=== PATIENT | male | born 1960 | race Caucasian/White ===

== ENCOUNTER → 2018-09-11 | Outpatient (CLI) | payer MEDICAID ==
--- NOTE | 2018-09-11 11:54 | Diagnostic Imaging Report ---
PROCEDURE: CT chest without contrast. TECHNIQUE: Multiple contiguous axial images were obtained through the chest without the use of intravenous contrast. Auto Exposure Controls were utilized during the CT exam to meet ALARA standards for radiation dose reduction. INDICATION: Abnormal chest x-ray 1 to 2 months ago. Patient also has right-sided chest pain. No prior studies are available for direct comparison. No axillary lymphadenopathy is seen. Hilar and mediastinal evaluation is limited without intravenous contrast but no significant abnormality is detected. No pericardial or pleural fluid is identified. Parenchymal evaluation does show severe emphysematous changes throughout both lungs. There is a spiculated density in the right upper lobe, image 39 measuring 13 mm. There is an additional spiculated density in the posterior left lower lobe measuring 17 mm. No other lung masses are seen. Upper abdomen does show bilateral adrenal masses, largest on the left measuring 5.8 x 2.9 cm. Right adrenal mass measures 2.8 x 2.0 cm. Both adrenal masses are fairly low in density. There is a tiny nonobstructing calculus in the right kidney. IMPRESSION: 1. Spiculated densities right upper lobe and left lower lobe, concerning for small malignancies. PET/CT study would be recommended for further evaluation. 2. Bilateral adrenal masses, indeterminate between adrenal adenomas versus metastatic lesions. These can be evaluated with PET/CT as well. Dictated by: Dictated on workstation # [id number]
== END ==
LOC: RAD FS 10:46
PROVIDERS: ATTEND Nurse Practitioner Family
DX: J98.4 Other disorders of lung (principal); E27.8 Other specified disorders of adrenal gland; R07.89 Other chest pain
CPT/HCPCS: 71250

== ENCOUNTER → 2018-09-22 | Outpatient (CLI) | payer MEDICAID ==
--- NOTE | 2018-09-22 15:59 | Diagnostic Imaging Report ---
EXAMINATION: PET/CT. INDICATION: Pulmonary nodules. EXAMINATION: After intravenous administration of 12.71 mCi of F18-FDG, a series of overlapping emission and transmission PET images was obtained. In the coronal, transaxial and sagittal planes, the area imaged extended from the skull base through the upper thighs. FINDINGS: There are no previous PET/CT examinations available for comparison. The recent CT chest exam performed on 09/11/2018 noted a spiculated density in the right upper lobe measuring 13 mm. That finding is again evident on this study and does not appear to have changed significantly. The maximum SUV in this area, however, is only 1.6. Consequently this may be secondary to scar formation as opposed to malignancy. Even so, I would recommend that a short-term (three-month) followup CT chest exam be performed for further study. There is also slightly increased hypermetabolic activity in the left perihilar region. The maximum SUV in this area is 3.5. However, there is no definite mass, and this finding may be secondary to volume averaging with the vascular structures. There is no other hypermetabolic focus within the thorax to suggest a malignant lesion. The previous exam did note bilateral adrenal masses. Those findings are again evident and unchanged on the CT images. The adrenal glands are not hypermetabolic, however. There is no other hypermetabolic focus seen to suggest the presence of malignancy. The CT images fail to show any sign of an acute abnormality. IMPRESSION: 1. The spiculated density in the right upper lung seen on the previous exam is again evident. This finding is not hypermetabolic. Even so, a short-term (three-month) follow-up CT chest exam would be recommended for continued evaluation. 2. There is no hypermetabolic activity associated with the adrenal glands, and most likely, the appearance of the adrenal glands is secondary to adrenal adenomas. 3. No other hypermetabolic activity is noted to indicate the presence of malignancy. Dictated by: Dictated on workstation # [id number]
== END ==
LOC: RAD 11:16
PROVIDERS: ATTEND Nurse Practitioner Family
DX: J98.4 Other disorders of lung (principal); R91.8 Other nonspecific abnormal finding of lung field; E27.8 Other specified disorders of adrenal gland

== ENCOUNTER 2019-02-01 15:02 | Emergency (ER) | payer MEDICAID ==
[~2019-02-01] VITALS: Ht 175.3 cm; Wt 74.8 kg
[2019-02-01] MEDS ORDERED: LIDOCAINE 1% INJ 20 ML 20 ML VIAL INJ ONE (15:30)
--- NOTE | 2019-02-01 15:49 | NUR ---
Pressure dressing applied after doctor used 5-0 running sutures to close laceration. Per doctor's order wrist splint applied for laceration with tendon damage.
--- NOTE | 2019-02-01 15:51 | ED Upper Extremity ---
General Chief Complaint: Laceration Stated Complaint: RT WRIST LAC Nursing Triage Note: Patient was sent over by [facility] in [place]. Pt at 1350 cut his wrist on tin while putting down shingles for a roof. Patient went to [facility] and they applied a wet to dry pressure dressing and gave the patient his Tdap shot. Pt was driven to this ER to be seen, because [facility] could not put subcutaneous sutures in. Pt was alert and oriented at arrival. Pt was ambulatory to room 5 where he layed down on the bed. Pt's vitals were taken and pressure dressing was removed. Pt's laceration was about 3 cm and bleeding. Gauze 4x4 was applied and wrapped in coban. Pt stated he can move all fingers and move hand around. Pain is about a 2/3, but patient does not want anything for pain, because he is on suboxone for past opioid use. Pt reports hydrocodone down for allergies, but no reaction except past opioid use. Nursing Sepsis Screen: No Definite Risk Source: patient Exam Limitations: no limitations History of Present Illness Date Seen by Provider: Feb 01, 2019 Time Seen by Provider: 15:36 Initial Comments This 59-year-old male presents with a laceration to the right wrist. Patient cut the dominant right wrist on a sharp piece of flashing while he was kayla. The patient was seen in the clinic prior to arrival and given a tetanus shot. He was referred here for definitive repair. The patient denies loss sensation range of motion of his affected extremity. He denies other injury. Allergies and Home Medications Allergies Coded Allergies: hydrocodone (Verified Allergy, Unknown, previous opioid user; on suboxone, 02/01/19) Patient Home Medication List Home Medication List Reviewed: Yes Review of Systems Constitutional: no symptoms reported EENTM: no symptoms reported Respiratory: no symptoms reported Cardiovascular: no symptoms reported Gastrointestinal: no symptoms reported Genitourinary: no symptoms reported Musculoskeletal: see HPI Skin: see HPI Psychiatric/Neurological: No Symptoms Reported Past Wobrplh-Dacstm-Syfcwe Hx Past Med/Social Hx: Reviewed Nursing Past Med/Soc Hx Patient Social History Alcohol Use: Denies Use Recreational Drug Use: No (Previous opioid user; on suboxone) Smoking Status: Current Everyday Smoker Type Used: Cigarettes 2nd Hand Smoke Exposure: Yes Recent Foreign Travel: No Contact w/Someone Who Travel: No Recent Infectious Disease Expo: No Recent Hopitalizations: No Physical Abuse: No Sexual Abuse: No Mistreated: No Fear: No Immunizations Up To Date Tetanus Booster (TDap): Less than 5yrs Seasonal Allergies Seasonal Allergies: No Past Medical History Surgeries: No Respiratory: Yes COPD Cardiac: No Neurological: No Genitourinary: No Gastrointestinal: No Musculoskeletal: No Endocrine: No HEENT: No Cancer: No Psychosocial: No Integumentary: No Blood Disorders: No Physical Exam Vital Signs Vital Signs - First Documented 02/01/19 15:05 Temp 99.0 Pulse 85 Resp 18 B/P (MAP) 124/81 (95) Pulse Ox 93 O2 Delivery Room Air Capillary Refill : NONE Height, Weight, BMI Height: 5'9.00" Weight: 165lbs. 0oz. [id number]; BMI Method:Stated General Appearance: WD/WN, mild distress Neck: normal inspection Cardiovascular: regular rate, rhythm Respiratory: lungs clear, normal breath sounds Gastrointestinal: normal bowel sounds, non tender, soft Back: normal inspection Shoulder: normal inspection Elbow/Forearm: normal inspection Wrist: Yes pain (there is a 6 cm laceration radial aspect of the right wrist) Hand: normal inspection Neurologic/Tendon: normal sensation, normal motor functions, normal tendon functions, responds to pain Neurologic/Psychiatric: no motor/sensory deficits, alert, oriented x 3 Progress/Results/Core Measures Results/Orders My Orders Orders - MARSHA DE LA CRUZ MD Lidocaine 1% Inj 20 Ml (Xylocaine 1% Inj (02/01/19 15:30) Medications Given in ED Current Medications Medications Dose Ordered Sig/Saadia Route Start Time Stop Time Status Last Admin Dose Admin Lidocaine HCl 10 ml ONCE ONCE INJ 02/01/19 15:30 02/01/19 15:31 DC 02/01/19 15:39 10 ML Vital Signs/I&O 02/01/19 15:05 Temp 99.0 Pulse 85 Resp 18 B/P (MAP) 124/81 (95) Pulse Ox 93 O2 Delivery Room Air Blood Pressure Mean: 95 Progress Progress Note : Time: 16:00 Progress Note The laceration to the radial aspect of the right wrist was copiously cleaned and irrigated. 1 percent plain lidocaine was used for local anesthesia. Exploration to the depth of the laceration demonstrated apparent transection of the flexor carpi radialis. The patient's external examination had appeared to be normal but clearly there is at least 2 tendons which have been disrupted. I called Dr. Francis of [facility] and he declined the patient. I placed a call to Dr. Tovar and am awaiting his call back. 4:17 pm I called , hand surgeon with [facility] and am awaiting his call as well. 1 gm of Rocephin IM was given. [address] Quick called back and will see the patient in his [facility] in the morning at 9 am. The patient was instructed to stay NPO in the morning. I placed him on Keflex 500 mg qid. No pain meds other than tylenol was recommended as the patient is recovering from narcotics. Departure Impression Primary Impression: Tendon laceration Disposition: HOME, SELF-CARE Condition: Improved Departure-Patient Inst. Decision time for Depature: 16:34 [place]: [facility] [place] Primary Care Physician MARSHA ONTIVEROS DO Patient Instructions: Tendon Laceration Add. Discharge Instructions: See Dr. Ontiveros at his [facility] at 10 am in the morning. Keflex as prescribed. Tylenol for pain. Splint right wrist. Come back if any problems or questions. All discharge instructions reviewed with patient and/or family. Voiced understanding. Scripts Cephalexin (Keflex) 500 Mg Capsule 500 MG PO QID for 10 Days, CAP Prov: MARSHA DE LA CRUZ MD 02/01/19 MARSHA DE LA CRUZ MD Feb 01, 2019 15:51
[2019-02-01] MEDS ORDERED: cefTRIAXone 500 MG/1.43 ML vial (IM ONLY) IM ONE (16:15)
[2019-02-01] MEDS ORDERED: CEPH-507 PO (16:37)
[2019-02-01 16:45] VITALS: BP 142/82
== END 2019-02-01 16:40 | disposition home or self-care (01) ==
LOC: EDUNIT# 15:02 → ER FS 15:03
DX: S66.921A Laceration of unspecified muscle, fascia and tendon at wrist and hand level, right hand, initial encounter (principal); J44.9 Chronic obstructive pulmonary disease, unspecified; F17.210 Nicotine dependence, cigarettes, uncomplicated; Z88.5 Allergy status to narcotic agent; W26.8XXA Contact with other sharp object(s), not elsewhere classified, initial encounter

== ENCOUNTER → 2019-04-07 | Outpatient (CLI) | payer MEDICAID ==
[~2019-04-07] MED LIST: CEPH-507 PO
--- NOTE | 2019-04-07 13:06 | Diagnostic Imaging Report ---
EXAMINATION: CT Chest without contrast. TECHNIQUE: Multiple contiguous axial images were obtained through the chest without the use of intravenous contrast. All CT scans use one or more of the following dose optimizing techniques: automated exposure control, MA and/or KvP adjustment based on a patient size and exam type, or iterative reconstruction. HISTORY: Lung nodules. COMPARISON: 09/11/2018. FINDINGS: The lungs are clear without edema or pneumonia. No pleural effusion or pneumothorax. The previously seen right upper lobe nodule has resolved. The left lower lobe nodule has nearly resolved and is now only 1 to 2 mm in size. There is some mild atelectasis in the right lung base. Lungs are severely emphysematous. No new nodules are seen. Heart size is normal. No pericardial effusion. Aorta is normal in caliber. There is no axillary or supraclavicular lymphadenopathy. There is no mediastinal lymphadenopathy. Bilateral adrenal nodules measuring 2.8 cm on the right and 5.8 cm on the left are unchanged with internal low attenuation in keeping with adenomas or lipid-poor myelolipomas. There are no suspicious osseous lesions. IMPRESSION: 1. The right upper lobe nodule is resolved and the left lower lobe nodule has nearly completely resolved. 2. Stable bilateral either adrenal adenomas or lipid-poor myelolipomas. Dictated by: Dictated on workstation # [id number]
== END ==
LOC: RAD FS 10:01
PROVIDERS: ATTEND Nurse Practitioner
DX: R91.8 Other nonspecific abnormal finding of lung field (principal)
CPT/HCPCS: 71250

== ENCOUNTER 2020-01-22 17:00 | Emergency (ER) | payer MEDICAID ==
[~2020-01-22] VITALS: Ht 175.3 cm; Wt 81.6 kg
--- NOTE | 2020-01-22 17:01 | ED General ---
General Stated Complaint: SOB History of Present Illness Date Seen by Provider: Jan 22, 2020 Time Seen by Provider: 17:01 Initial Comments Mr. Soto is a 60 y/o male with PMH significant for tobacco abuse and COPD. He comes to the ER today c/o dyspnea. Symptoms started earlier today. He has been using albuterol treatments at home today without relief of dyspnea symptoms. He does endorse some increasing cough that is productive of sputum. Mildly worse compared to baseline. He has otherwise been at baseline health until onset of sx earlier today. No chest pain. No fever. No viral symptoms or recent travel. He had previously been treated with oxygen at home but states he no longer has this available. Allergies and Home Medications Allergies Coded Allergies: hydrocodone (Verified Allergy, Unknown, previous opioid user; on suboxone, 02/01/19) Home Medications Albuterol Sulfate 2.5 Mg/3 Ml Vial.neb, 2.5 MG INH Q4H PRN for WHEEZING Prescribed by: MICHAEL HERNANDEZ on 01/22/201907 Azithromycin 250 Mg Tablet, 250 MG PO DAILY Prescribed by: MICHAEL HERNANDEZ on 01/22/201907 Cephalexin 500 Mg Capsule, 500 MG PO QID Prescribed by: MARSHA DE LA CRUZ MD on 02/01/191636 Prednisone 50 Mg Tab, 50 MG PO DAILY Prescribed by: MICHAEL HERNANDEZ on 01/22/201910 Patient Home Medication List Home Medication List Reviewed: Yes Review of Systems Review of Systems Constitutional: no symptoms reported EENTM: no symptoms reported Respiratory: see HPI, cough Cardiovascular: no symptoms reported Musculoskeletal: no symptoms reported Skin: no symptoms reported All Other Systems Reviewed Negative Unless Noted: Yes Physical Exam Vital Signs Vital Signs - First Documented 01/22/20 01/22/20 17:18 17:29 Temp 36.0 Pulse 101 Resp 28 B/P (MAP) 127/81 (96) Pulse Ox 97 O2 Delivery Nasal Cannula O2 Flow Rate 2.00 Capillary Refill : Height, Weight, BMI Height: '" Weight: lbs. oz. kg; BMI Method: General Appearance: No Apparent Distress, WD/WN HEENT: PERRL/EOMI Respiratory: Other (wheezes bilaterally with prolonged expiratory phase and some diminished air flow. mild increased work of breathing.) Cardiovascular: No Murmur, Tachycardia Gastrointestinal: Non Tender, Soft Extremity: Normal Capillary Refill Progress/Results/Core Measures Suspected Sepsis SIRS Temperature: Pulse: Respiratory Rate: Laboratory Tests 01/22/20 17:16: White Blood Count 11.0 Blood Pressure / Mean: Laboratory Tests 01/22/20 17:16: Creatinine 0.94, Platelet Count 438H Results/Orders Lab Results Laboratory Tests Test 01/22/20 17:16 Range/Units White Blood Count 11.0 4.3-11.0 10^3/uL Red Blood Count 5.19 4.35-5.85 10^6/uL Hemoglobin 14.6 13.3-17.7 G/DL Hematocrit 46 40-54 % Mean Corpuscular Volume 89 80-99 FL Mean Corpuscular Hemoglobin 28 25-34 PG Mean Corpuscular Hemoglobin Concent 32 32-36 G/DL Red Cell Distribution Width 14.3 10.0-14.5 % Platelet Count 438 H 130-400 10^3/uL Mean Platelet Volume 10.4 7.4-10.4 FL Neutrophils (%) (Auto) 75 42-75 % Lymphocytes (%) (Auto) 14 12-44 % Monocytes (%) (Auto) 8 0-12 % Eosinophils (%) (Auto) 3 0-10 % Basophils (%) (Auto) 0 0-10 % Neutrophils # (Auto) 8.2 H 1.8-7.8 X 10^3 Lymphocytes # (Auto) 1.5 1.0-4.0 X 10^3 Monocytes # (Auto) 0.9 0.0-1.0 X 10^3 Eosinophils # (Auto) 0.3 0.0-0.3 10^3/uL Basophils # (Auto) 0.0 0.0-0.1 10^3/uL Sodium Level 140 135-145 MMOL/L Potassium Level 5.5 H 3.6-5.0 MMOL/L Chloride Level 101 98-107 MMOL/L Carbon Dioxide Level 30 21-32 MMOL/L Anion Gap 9 5-14 MMOL/L Blood Urea Nitrogen 18 7-18 MG/DL Creatinine 0.94 0.60-1.30 MG/DL Estimat Glomerular Filtration Rate > 60 BUN/Creatinine Ratio 19 Glucose Level 120 H 70-105 MG/DL Calcium Level 9.7 8.5-10.1 MG/DL Troponin I < 0.30 <0.30 NG/ML Pro-B-Type Natriuretic Peptide 48.4 <75.0 PG/ML My Orders Orders - MICHAEL HERNANDEZ DO Ed Iv/Invasive Line Start (01/22/20 17:10) Cbc With Automated Diff (01/22/20 17:10) Basic Metabolic Panel (01/22/20 17:10) Probnp Fs (01/22/20 17:10) Troponin I Fs (01/22/20 17:10) Ekg Tracing (01/22/20 17:10) Methylprednisolone Sod Succ (Solu-Medrol (01/22/20 17:15) Albuterol/Ipra Inhalation Soln (Duoneb I (01/22/20 17:15) Svn Small Volume Nebulizer (01/22/20 17:11) Chest 1 View Ap/Pa Only (01/22/20 17:26) Albuterol Pre-Mix Nebs (Rt) (Proventil (01/22/20 17:30) Svn Small Volume Nebulizer (01/22/20 17:30) Ns Iv 1000 Ml (Sodium Chloride 0.9%) (01/22/20 18:15) Albuterol Pre-Mix Nebs (Rt) (Proventil (01/22/20 19:00) Svn Small Volume Nebulizer (01/22/20 18:46) Rx-Albuterol Nebs (Rx-Proventil Nebs) (01/22/20 18:43) Azithromycin Tablet (Zithromax Tablet) (01/22/20 19:15) Medications Given in ED Current Medications Medications Dose Ordered Sig/Saadia Route Start Time Stop Time Status Last Admin Dose Admin Albuterol Sulfate 2.5 mg STK-MED ONCE IH 01/22/20 18:43 01/22/20 18:47 DC 01/22/20 18:54 2.5 MG Albuterol Sulfate 10 mg ONCE ONCE INH 01/22/20 17:30 01/22/20 17:36 DC 01/22/20 17:49 10 MG Albuterol Sulfate 10 mg ONCE ONCE INH 01/22/20 19:00 01/22/20 19:01 DC 01/22/20 18:51 10 MG Albuterol/ Ipratropium 3 ml ONCE ONCE INH 01/22/20 17:15 01/22/20 17:18 DC 01/22/20 17:24 3 ML Methylprednisolone Sodium Succinate 125 mg ONCE ONCE IVP 01/22/20 17:15 01/22/20 17:16 DC 01/22/20 17:24 125 MG Vital Signs/I&O 01/22/20 01/22/20 17:18 17:29 Temp 36.0 Pulse 101 Resp 28 B/P (MAP) 127/81 (96) Pulse Ox 97 97 O2 Delivery Nasal Cannula Nasal Cannula O2 Flow Rate 2.00 Capillary Refill : Progress Note : Time: 17:00 Progress Note Patient seen and examined. Mildly dyspneic with wheezes bilaterally. Will check labs, EKG, and treat with duoneb, albuterol, and solumedrol. 19:15: ED Summary: Patient is seen in the ER for COPD exacerbation. On arrival to the ER, his oxygen saturation was 88% on room air and he was having significant dyspnea. Patient was much improved after a single DuoNeb treatment followed by a 10 mg continuous treatment. X-ray was completed and no definitive infiltrate was seen but patient is empirically placed on azithromycin for joanna tment of COPD exacerbation with worsening cough and sputum production. He was ambulated about the department and repeat oxygen saturation remained above 93%. He was subjectively feeling improved but did have continued dyspnea after the first treatment and after walking about the department. Following this, he was given a second extended 10 mg treatment and he felt much improved. Following that he had improvement in lung sounds and was better able to tolerate activity. His oxygen saturation remained above 95%. Patient was discharged home. He was given some albuterol ampules to use at home tonight and he is given a refill of nebulized treatments to use in his machine at home which he can begin tomorrow. He is placed on prednisone over the next 5 days as well as azithromycin. ECG Initial ECG Impression Date: Jan 22, 2020 Initial ECG Impression Time: 17:20 Initial ECG Rate: 118 Initial ECG Rhythm: S.Tach Departure Impression Primary Impression: COPD exacerbation Disposition: HOME, SELF-CARE Condition: Improved Departure-Patient Inst. Scripts Prednisone (Prednisone) 50 Mg Tab 50 MG PO DAILY for 4 Days, #4 TAB Prov: MICHAEL HERNANDEZ DO 01/22/20 Albuterol Sulfate (Albuterol Sulfate) 2.5 Mg/3 Ml Vial.neb 2.5 MG INH Q4H PRN for WHEEZING, #50 EA 1 Refill Prov: MICHAEL HERNANDEZ DO 01/22/20 Azithromycin (Azithromycin) 250 Mg Tablet 250 MG PO DAILY, #4 TAB 0 Refills Prov: MICHAEL HERNANDEZ DO 01/22/20 MICHAEL HERNANDEZ DO Jan 22, 2020 17:01
[2020-01-22] MEDS ORDERED: methylPREDNISolone 125 MG (Solu-MEDROL) VIAL IVP ONE (17:15)
[2020-01-22] MEDS ORDERED: RT-ALBUTEROL/IPRATROPIUM 3 ML (DUONEB) VIAL INH ONE (17:15)
[2020-01-22] MEDS ORDERED: RT-ALBUTEROL SULF 2.5 MG/3 ML PRE-MIX VIAL INH ONE ×2 (17:30→19:00)
[2020-01-22 17:31] LABS: BASOPHILS % (AUTO) 0 % (0-10); EOSINOPHILS % (AUTO) 3 % (0-10); HEMATOCRIT 46 % (40-54); HEMOGLOBIN 14.6 G/DL (13.3-17.7); LYMPHOCYTES % (AUTO) 14 % (12-44); MEAN CORPUSCULAR HEMOGLOBIN 28 PG (25-34); MEAN CORPUSCULAR HGB CONC 32 G/DL (32-36); MEAN CORPUSCULAR VOLUME 89 FL (80-99); MEAN PLATELET VOLUME 10.4 FL (7.4-10.4); MONOCYTES % (AUTO) 8 % (0-12); NEUTROPHILS % (AUTO) 75 % (42-75); PLATELET COUNT 438 10^3/uL (130-400); RED CELL DISTRIBUTION WIDTH 14.3 % (10.0-14.5)
[2020-01-22 17:32] LABS: EOSINOPHILS # (AUTO) 0.3 10^3/uL (0.0-0.3); LYMPHOCYTES # (AUTO) 1.5 X 10^3 (1.0-4.0); MONOCYTES # (AUTO) 0.9 X 10^3 (0.0-1.0); NEUTROPHILS # (AUTO) 8.2 X 10^3 (1.8-7.8)
--- NOTE | 2020-01-22 17:51 | Diagnostic Imaging Report ---
INDICATION: Shortness of breath, COPD. COMPARISON: 04/07/2019. EXAMINATION: Single view of the chest was obtained. FINDINGS: There is hyperinflation compatible with COPD. There is focal scarring in the left base. The heart is prominent without pulmonary edema. There is no pneumothorax. Osseous structures are stable. IMPRESSION: COPD with focal scarring in the left base. Underlying small effusion is not excluded. Follow-up recommended. Dictated by: Dictated on workstation # [id number]
[2020-01-22 17:54] LABS: BUN/CREATININE RATIO 19; CALCIUM 9.7 MG/DL (8.5-10.1); CARBON DIOXIDE 30 MMOL/L (21-32); CHLORIDE 101 MMOL/L (98-107); CREATININE SERUM 0.94 MG/DL (0.60-1.30); GFR ESTIMATED > 60; GLUCOSE 120 MG/DL (70-105); POTASSIUM 5.5 MMOL/L (3.6-5.0); SODIUM 140 MMOL/L (135-145)
[2020-01-22] MEDS ORDERED: NS IV 1000 ML 1,000 ML IV SCH (18:15)
[2020-01-22] MEDS ORDERED: RX-ALBUTEROL NEB 2.5 MG/3 ML PACK #5 IH ONE (18:43)
[2020-01-22] MEDS ORDERED: ALBU2.5V4 INH (19:08)
[2020-01-22] MEDS ORDERED: AZIT250T12 PO (19:08)
[2020-01-22] MEDS ORDERED: PRD50T PO (19:11)
[2020-01-22] MEDS ORDERED: AZITHROMYCIN 250 MG TAB (ZITHROMAX) PO ONE (19:15)
[2020-01-22 19:23] VITALS: BP 125/70
== END 2020-01-22 19:31 | disposition home or self-care (01) ==
LOC: EDUNIT# 17:00 → ER FS 17:01
DX: J44.1 Chronic obstructive pulmonary disease with (acute) exacerbation (principal); Z88.5 Allergy status to narcotic agent
CPT/HCPCS: 36415; 71045; 80048; 83880; 84484; 85025; 93005; 94640

== ENCOUNTER 2020-10-22 19:09 | Emergency (ER) | payer MEDICAID ==
[~2020-10-22 19:09] MED LIST changes: +ALBU2.5V4 INH; +AZIT250T12 PO; +PRD50T PO
[2020-10-22 19:26] LABS: BACTERIA,URINE TRACE /HPF; BILIRUBIN,URINE NEGATIVE (NEGATIVE); CLARITY,URINE CLEAR; COLOR,URINE YELLOW; GLUCOSE, URINE (UA) NEGATIVE (NEGATIVE); KETONES,URINE NEGATIVE (NEGATIVE); LEUKOCYTE ESTERASE ,URINE NEGATIVE (NEGATIVE); NITRITE,URINE NEGATIVE (NEGATIVE); PROTEIN,URINE NEGATIVE (NEGATIVE); RBC,URINE RARE /HPF; WBC,URINE RARE /HPF
[2020-10-22] MEDS ORDERED: fentaNYL INJ 100 MCG/2 ML AMP IM STA (19:40)
[2020-10-22] MEDS ORDERED: ORPHENADRINE 60 MG/2 ML (NORFLEX) AMP (ED ONLY) IM STA (19:40)
--- NOTE | 2020-10-22 19:48 | ED General ---
General Chief Complaint: Back Problems Stated Complaint: UPPER BACK PAIN Nursing Triage Note: Pt complaining of right back pain that has been going on for a week but worsened tonight after coughing. Nursing Sepsis Screen: No Definite Risk Source of Information: Patient History of Present Illness Date Seen by Provider: October 22, 2020 Time Seen by Provider: 19:08 Initial Comments 60-year-old male presenting with right-sided rib and chest wall pain. He states this has been going on for 5 or 6 days. He has had pain like that before he thought it would go away. He is a smoker and has COPD. He coughed hard tonight and felt something pop on his right anterior and lateral chest. He has had sev ere pain since then and it hurts to take a deep breath or move. He denies any nausea, vomiting, fever, chills. He has dropped his cigarettes from 2 packs a day to half a pack a day. He plans to do away with more of the cigarettes after tonight since he was having so much pain. He has had both of his Covid vaccine shots. Timing/Duration: 5-6 Days (but worse tonight after cough) Severity: Severe Modifying Factors: worse with Movement Associated Systoms: Chest Pain (right chest wall pain), Cough; No Diaphoresis, No Fever/Chills, No Headaches, No Loss of Appetite, No Malaise, No Nausea/Vomiting, No Rash, No Seizure; Shortness of Air (chronic); No Syncope, No Weakness Allergies and Home Medications Allergies Coded Allergies: hydrocodone (Verified Allergy, Unknown, previous opioid user; on suboxone, 02/01/19) Home Medications Albuterol Sulfate 2.5 Mg/3 Ml Vial.neb, 2.5 MG INH Q4H PRN for WHEEZING Prescribed by: MICHAEL HERNANDEZ on 01/22/201907 Azithromycin 250 Mg Tablet, 250 MG PO DAILY Prescribed by: MICHAEL HERNANDEZ on 01/22/201907 Cephalexin 500 Mg Capsule, 500 MG PO QID Prescribed by: MARSHA DE LA CRUZ MD on 02/01/191636 Lidocaine 1 Each Adh..patch, 1 EACH TP Q12H PRN for rib fracture pain 2 patches max for 12 hours, then 12 hours patch-free period. Place patch over area of Maximum pain on ribs/chest. Prescribed by: VALERIA NUNEZ on 10/22/202043 Oxycodone HCl/Acetaminophen 1 Each Tablet, 1 EACH PO Q4H PRN for PAIN-SEVERE (8- 10) Prescribed by: VALERIA NUNEZ on 10/22/202043 Prednisone 50 Mg Tab, 50 MG PO DAILY Prescribed by: MICHAEL HERNANDEZ on 01/22/201910 Patient Home Medication List Home Medication List Reviewed: Yes Review of Systems Review of Systems Constitutional: No chills, No fever EENTM: no symptoms reported Respiratory: see HPI Cardiovascular: see HPI Gastrointestinal: no symptoms reported Genitourinary: no symptoms reported Musculoskeletal: see HPI Skin: No change in color, No rash Psychiatric/Neurological: No Symptoms Reported Hematologic/Lymphatic: Denies Easy Bleeding, Denies Easy Bruising Past Icldlsm-Rjjcrb-Wstgcn Hx Past Med/Social Hx: Reviewed Nursing Past Med/Soc Hx Patient Social History Alcohol Use: Denies Use Smoking Status: Current Everyday Smoker Type Used: Cigarettes 2nd Hand Smoke Exposure: Yes Recent Infectious Disease Expo: No Recent Hopitalizations: No Immunizations Up To Date Tetanus Booster (TDap): Less than 5yrs Seasonal Allergies Seasonal Allergies: No Past Medical History Surgeries: No Respiratory: Yes COPD Cardiac: No Neurological: No Genitourinary: No Gastrointestinal: No Musculoskeletal: No Endocrine: No HEENT: No Cancer: No Psychosocial: No Integumentary: No Blood Disorders: No Physical Exam Vital Signs Vital Signs - First Documented 10/22/20 19:10 Temp 36.6 Pulse 96 Resp 20 B/P (MAP) 151/78 (102) Pulse Ox 95 O2 Delivery Room Air Capillary Refill : Less Than 3 Seconds Height, Weight, BMI Height: 5'9.00" Weight: 165lbs. 0oz. [id number]; 26.00 BMI Method:Stated General Appearance: Chronically ill, Moderate Distress (complains of chest pain on right side with breathing) HEENT: PERRL/EOMI, Pharynx Normal Neck: Full Range of Motion, Supple Respiratory: Decreased Breath Sounds; No Stridor; Wheezing, Other (tender to palpation on right lower lateral and anterior ribs/chest wall) Cardiovascular: Regular Rate, Rhythm, Normal Peripheral Pulses Gastrointestinal: No Pulsatile Mass, Non Tender, Soft Back: No CVA Tenderness, No Vertebral Tenderness Extremity: Normal Capillary Refill, No Pedal Edema Neurologic/Psychiatric: Alert, Oriented x3 Skin: Normal Color, Warm/Dry; No Ecchymosis, No Rash Progress/Results/Core Measures Suspected Sepsis Recent Fever Within 48 Hours: No Infection Criteria Present: None New/Unexplained Altered Menta: No Sepsis Screen: No Definite Risk SIRS Temperature: Pulse: 96 Respiratory Rate: 20 Blood Pressure 151 /78 Mean: 102 Results/Orders Lab Results Laboratory Tests Test 10/22/20 19:13 Range/Units Urine Color YELLOW Urine Clarity CLEAR Urine pH 7.0 5-9 Urine Specific [place] 1.010 L 1.016-1.022 Urine Protein NEGATIVE NEGATIVE Urine Glucose (UA) NEGATIVE NEGATIVE Urine Ketones NEGATIVE NEGATIVE Urine Nitrite NEGATIVE NEGATIVE Urine Bilirubin NEGATIVE NEGATIVE Urine Urobilinogen 0.2 < = 1.0 MG/DL Urine Leukocyte Esterase NEGATIVE NEGATIVE Urine RBC (Auto) NEGATIVE NEGATIVE Urine RBC RARE /HPF Urine WBC RARE /HPF Urine Crystals NONE /LPF Urine Bacteria TRACE /HPF Urine Casts NONE /LPF Urine Mucus SMALL H /LPF Urine Culture Indicated NO Urine Opiates Screen NEGATIVE NEGATIVE Urine Oxycodone Screen NEGATIVE NEGATIVE Urine Methadone Screen NEGATIVE NEGATIVE Urine Propoxyphene Screen NEGATIVE NEGATIVE Urine Barbiturates Screen NEGATIVE NEGATIVE Ur Tricyclic Antidepressants Screen NEGATIVE NEGATIVE Urine Phencyclidine Screen NEGATIVE NEGATIVE Urine Amphetamines Screen NEGATIVE NEGATIVE Urine Methamphetamines Screen NEGATIVE NEGATIVE Urine Benzodiazepines Screen NEGATIVE NEGATIVE Urine Cocaine Screen NEGATIVE NEGATIVE Urine Cannabinoids Screen NEGATIVE NEGATIVE My Orders Orders - VALERIA NUNEZ MD Ua Culture If Indicated (10/22/20 19:20) Drug Screen Stat (Urine) (10/22/20 19:20) Orphenadrine Inj (Ed Only) (Norflex Inje (10/22/20 19:40) Fentanyl Inj (Sublimaze Injection) (10/22/20 19:40) Ct Chest Wo (10/22/20 19:41) Rx-Oxycodone/Apap 5-325 Mg (Rx-Percocet (10/22/20 20:45) Medications Given in ED Current Medications Medications Dose Ordered Sig/Saadia Route Start Time Stop Time Status Last Admin Dose Admin Oxycodone/ Acetaminophen 1 ea Q4H PRN PO 10/22/20 20:45 10/22/20 20:43 1 EA Vital Signs/I&O 10/22/20 19:10 Temp 36.6 Pulse 96 Resp 20 B/P (MAP) 151/78 (102) Pulse Ox 95 O2 Delivery Room Air Capillary Refill : Less Than 3 Seconds Blood Pressure Mean: 102 Progress Note #1: Progress Note give fentanyl and norflex to try and help with pain and muscle spasms of the chest. obtain CT chest without to evaluate for rib fracture or bleb of lung that may have popped and caused small pneumothorax. Differential diagnosis includes pneumonia, broken rib from coughing, pneumothorax, COPD exacerbation, chest wall pain Progress Note #2: Progress Note pt reports some mild improvement in pain down to 5/10 after treatment in ED. CT chest came back showing a non-displaced right 5th rib fracture. Will discuss pain management and offer lidocaine patches as well. Have him check back with clinic for continued pain management and in case they need to have nerve block to help with pain control Diagnostic Imaging Diagonstic Imaging: CT Plain Films/CT/US/NM/MRI: chest Comments NAME: TERESA HERNANDEZ [facility] REC#: [id number] PT STATUS: REG ER : 1960 PHYSICIAN: VALERIA NUNEZ MD ADMIT DATE: 10/22/20/ER FS Draft Date of Exam:10/22/20 CT CHEST WO PROCEDURE: CT chest without contrast. TECHNIQUE: Multiple contiguous axial images were obtained through the chest without the use of intravenous contrast. Auto Exposure Controls were utilized during the CT exam to meet ALARA standards for radiation dose reduction. INDICATION: Right chest wall pain x 1 week. COMPARISON: 04/07/2019. FINDINGS: Cardiomediastinal structures show normal heart size. There is no large pericardial effusion. There is minimal scattered calcified aortic atherosclerosis. No pathologically enlarged or morphologically abnormal adenopathy is seen within the mediastinum, shannan or axilla on this noncontrast study. Evaluation of the lung busby demonstrates background advanced centrilobular emphysematous disease. No focal consolidation, large effusion or pneumothorax is identified. Punctate subpleural micronodule is noted within the anterior margins of the right middle lobe and measures 3 mm (image 94, series 5). This is stable compared to 04/07/2019. There is also bronchiectasis involving the bilateral mid and lower lung busby. Osseous structures show subtle acute nondisplaced posterior right 9th rib fracture (image 117, series 5. No lytic or blastic bony lesion is seen. Included portions of the upper abdomen show hypodense masslike enlargement of the left adrenal gland. This is stable compared to prior exam. Hounsfield unit of 4 is consistent with benignity. Right adrenal nodule is also identified. Hounsfield unit of 7 is consistent with benign adenoma. IMPRESSION: 1. No acute cardiopulmonary process. 2. Acute nondisplaced posterior right 9th rib fracture. 3. Background advanced emphysematous disease. 4. Stable punctate micronodule in the right middle lobe. 5. Stable bilateral adrenal lesions. Dictated on workstation # [id number] Dict: 10/22/202007 Trans: 10/22/202017 PJE [id number] Interpreted by: CHRISTINE DEVLIN MD Electronically signed by: Reviewed: Reviewed by Me Departure Impression Primary Impression: Closed fracture of one rib of right side Qualified Codes: S22.31XA - Fracture of one rib, right side, initial encounter for closed fracture Additional Impression: Right-sided chest wall pain Disposition: HOME, SELF-CARE Condition: Stable Departure-Patient Inst. Decision time for Depature: 20:41 Referrals: HUGH HOFFMANN MD (PCP/Family) Primary Care Physician Patient Instructions: Rib Fracture or Bruised Rib ED Add. Discharge Instructions: Make sure to keep taking deep breaths to help prevent pneumonia by keeping your lungs expanded. Use a pillow or something to hold onto and splint your side to help ease the pain when you cough or are breathing deeply. Follow up with clinic for continued pain management of your fractured rib All discharge instructions reviewed with patient and/or family. Voiced understanding. Scripts Baclofen (Baclofen) 10 Mg Tablet 10 MG PO TID PRN for MUSCLE SPASMS for 10 Days, #30 TAB 0 Refills Prov: VALERIA NUNEZ MD 10/22/20 Lidocaine (Lidocaine 5% Patch) 1 Each Adh..patch 1 EACH TP Q12H PRN for rib fracture pain MDD 2 for 14 Days, #14 PATCH 0 Refills 2 patches max for 12 hours, then 12 hours patch-free period. Place patch over area of Maximum pain on ribs/chest. Prov: VALERIA NUNEZ MD 10/22/20 Oxycodone HCl/Acetaminophen (Oxycodone-Acetaminophen 5-325) 1 Each Tablet 1 EACH PO Q4H PRN for PAIN-SEVERE (8-10) MDD 6 for 3 Days, #18 TAB 0 Refills Prov: VALERIA NUNEZ MD 10/22/20 VALERIA NUNEZ MD October 22, 2020 19:48
[2020-10-22 20:05] LABS: AMPHETAMINE SCREEN, URINE NEGATIVE (NEGATIVE); BARBITURATE SCREEN URINE NEGATIVE (NEGATIVE); BENZODIAZEPINES SCREEN URINE NEGATIVE (NEGATIVE); CANNABINOID SCREEN, URINE NEGATIVE (NEGATIVE); COCAINE SCREEN URINE NEGATIVE (NEGATIVE); METHADONE STAT NEGATIVE (NEGATIVE); METHAMPHETAMINE SCREEN URINE S NEGATIVE (NEGATIVE); OPIATE SCREEN URINE NEGATIVE (NEGATIVE); OXYCODONE STAT NEGATIVE (NEGATIVE); PROPOXYPHENE STAT NEGATIVE (NEGATIVE); TRICYCLIC ANTIDEPRESSANTS SCRE NEGATIVE (NEGATIVE)
--- NOTE | 2020-10-22 20:19 | Diagnostic Imaging Report ---
PROCEDURE: CT chest without contrast. TECHNIQUE: Multiple contiguous axial images were obtained through the chest without the use of intravenous contrast. Auto Exposure Controls were utilized during the CT exam to meet ALARA standards for radiation dose reduction. INDICATION: Right chest wall pain x 1 week. COMPARISON: 04/07/2019. FINDINGS: Cardiomediastinal structures show normal heart size. There is no large pericardial effusion. There is minimal scattered calcified aortic atherosclerosis. No pathologically enlarged or morphologically abnormal adenopathy is seen within the mediastinum, shannan or axilla on this noncontrast study. Evaluation of the lung busby demonstrates background advanced centrilobular emphysematous disease. No focal consolidation, large effusion or pneumothorax is identified. Punctate subpleural micronodule is noted within the anterior margins of the right middle lobe and measures 3 mm (image 94, series 5). This is stable compared to 04/07/2019. There is also bronchiectasis involving the bilateral mid and lower lung busby. Osseous structures show subtle acute nondisplaced posterior right 9th rib fracture (image 117, series 5. No lytic or blastic bony lesion is seen. Included portions of the upper abdomen show hypodense masslike enlargement of the left adrenal gland. This is stable compared to prior exam. Hounsfield unit of 4 is consistent with benignity. Right adrenal nodule is also identified. Hounsfield unit of 7 is consistent with benign adenoma. IMPRESSION: 1. No acute cardiopulmonary process. 2. Acute nondisplaced posterior right 9th rib fracture. 3. Background advanced emphysematous disease. 4. Stable punctate micronodule in the right middle lobe. 5. Stable bilateral adrenal lesions. Dictated by: Dictated on workstation # [id number]
[2020-10-22] MEDS ORDERED: OXYC1TAB11 PO (20:44)
[2020-10-22] MEDS ORDERED: LIDO700A45 TP (20:44)
[2020-10-22] MEDS ORDERED: RX-OXYCODONE/APAP 5-325 MG #4 TAB PK PO PRN (20:45)
[2020-10-22 20:50] VITALS: BP 151/78
[2020-10-22] MEDS ORDERED: BACL10TA PO (20:51)
== END 2020-10-22 20:50 | disposition home or self-care (01) ==
LOC: EDUNIT# 19:09 → ER FS 19:12
DX: S22.31XA Fracture of one rib, right side, initial encounter for closed fracture (principal); J44.9 Chronic obstructive pulmonary disease, unspecified; F17.210 Nicotine dependence, cigarettes, uncomplicated; Z79.899 Other long term (current) drug therapy; Z79.52 Long term (current) use of systemic steroids; Z88.5 Allergy status to narcotic agent; X58.XXXA Exposure to other specified factors, initial encounter
CPT/HCPCS: 71250; 80306; 81000

== ENCOUNTER 2021-01-03 18:08 | Emergency (ER) | payer MEDICAID ==
[~2021-01-03] VITALS: Ht 175.2 cm; Wt 98.0 kg
[~2021-01-03 18:08] MED LIST changes: +BACL10TA PO; +LIDO700A45 TP; +OXYC1TAB11 PO
[2021-01-03 18:17] VITALS: BP 141/78
--- NOTE | 2021-01-03 18:36 | ED General ---
General Chief Complaint: Chest Wall Stated Complaint: RT RIB PAIN History of Present Illness Date Seen by Provider: Jan 03, 2021 Time Seen by Provider: 18:28 Initial Comments 60-year-old male presents stating he has right-sided rib pain after coughing several times today. Also states he has a history of broken ribs on the side about 6 months ago for which he was seen here and given oxycodone. He says he took the last one today prior to coming into the ER. Patient is a smoker with history of COPD His PCP is Dr. Lay Allergies and Home Medications Allergies Coded Allergies: hydrocodone (Verified Allergy, Unknown, previous opioid user; on suboxone, 02/01/19) Home Medications Albuterol Sulfate 2.5 Mg/3 Ml Vial.neb, 2.5 MG INH Q4H PRN for WHEEZING Prescribed by: MICHAEL HERNANDEZ on 01/22/201907 Azithromycin 250 Mg Tablet, 250 MG PO DAILY Prescribed by: MICHAEL HERNANDEZ on 01/22/201907 Baclofen 10 Mg Tablet, 10 MG PO TID PRN for MUSCLE SPASMS Prescribed by: VALERIA NUNEZ on 10/22/202050 Cephalexin 500 Mg Capsule, 500 MG PO QID Prescribed by: MARSHA DE LA CRUZ MD on 02/01/19 163 Ibuprofen 800 Mg Tablet, 800 MG PO Q8H PRN for PAIN Prescribed by: MIKHAIL CORONA on 01/03/211845 Lidocaine 1 Each Adh..patch, 1 EACH TP Q12H PRN for rib fracture pain 2 patches max for 12 hours, then 12 hours patch-free period. Place patch over area of Maximum pain on ribs/chest. Prescribed by: VALERIA NUNEZ on 10/22/202043 Oxycodone HCl/Acetaminophen 1 Each Tablet, 1 EACH PO Q4H PRN for PAIN-SEVERE (8- 10) Prescribed by: VALERIA NUNEZ on 10/22/202043 Oxycodone HCl/Acetaminophen 1 Each Tablet, 1 EACH PO Q4H PRN for PAIN-MODERATE Prescribed by: MIKHAIL CORONA on 01/03/211847 Prednisone 50 Mg Tab, 50 MG PO DAILY Prescribed by: MICHAEL HERNANDEZ on 01/22/20 191 Patient Home Medication List Home Medication List Reviewed: Yes Review of Systems Review of Systems Constitutional: No dizziness, No fever, No malaise, No weakness EENTM: no symptoms reported Respiratory: No cough, No short of breath Cardiovascular: chest pain (Right lower lateral chest wall); No edema, No palpitations, No syncope Gastrointestinal: No abdominal pain, No nausea, No vomiting Musculoskeletal: No back pain, No joint pain Skin: No change in color, No lesions, No lumps, No rash Past Dqtrzsn-Dnasxj-Qkcfnr Hx Patient Social History Tobacco Use?: Yes Tobacco type used: Cigarettes Smoking Status: Current Someday Smoker Substance use?: No Alcohol Use?: No Pt feels they are or have been: No Immunizations Up To Date Tetanus Booster (TDap): Less than 5yrs Second COVID19 Vaccination Romaine: completed November 2020 COVID19 Vaccine Customer Operations Specialist: Preziaruna Seasonal Allergies Seasonal Allergies: No Past Medical History Surgery/Hospitalization HX: COPD, Fx ribs on right hx Surgeries: No Respiratory: Yes COPD Cardiac: No Neurological: No Genitourinary: No Gastrointestinal: No Musculoskeletal: No Endocrine: No HEENT: No Cancer: No Psychosocial: No Integumentary: No Blood Disorders: No Physical Exam Vital Signs Vital Signs - First Documented 01/03/21 18:17 Temp 36.5 Pulse 89 Resp 20 B/P (MAP) 141/78 (99) Pulse Ox 95 O2 Delivery Room Air Capillary Refill : Height, Weight, BMI Height: 5'9.00" Weight: 165lbs. 0oz. 74.908286lp; 26.00 BMI Method:Stated General Appearance: No Apparent Distress, WD/WN Respiratory: Lungs Clear, Normal Breath Sounds, No Accessory Muscle Use, No Respiratory Distress, Other (tenderness Right lateral lower costal margin) Cardiovascular: Regular Rate, Rhythm, No Edema, No JVD Gastrointestinal: Normal Bowel Sounds, Non Tender, Soft Back: Normal Inspection, No CVA Tenderness, No Vertebral Tenderness Neurologic/Psychiatric: Alert, Oriented x3, Normal Mood/Affect Progress/Results/Core Measures Suspected Sepsis SIRS Temperature: Pulse: Respiratory Rate: Blood Pressure / Mean: Results/Orders My Orders Orders - ROVENSTINEMIKHAIL DO Ribs 2-3 View Right (01/03/21 18:24) Vital Signs/I&O 01/03/21 18:17 Temp 36.5 Pulse 89 Resp 20 B/P (MAP) 141/78 (99) Pulse Ox 95 O2 Delivery Room Air Capillary Refill : Diagnostic Imaging Diagonstic Imaging: Xray Comments Date of Exam:01/03/21 RIBS 2-3 VIEW RIGHT INDICATION: Right-sided rib pain, rib fractures, COPD COMPARISON: 10/22/2020 CT chest FINDINGS: 3 views of the right ribs demonstrate a healed 9th rib fracture. There is no new fracture deformity. No osseous lesion is seen. The visualized right lung is clear. There is no pneumothorax or effusion. IMPRESSION: Healing right 9th rib fracture. No acute fracture deformity identified. Dictated by: Dictated on workstation # [id number] Dict: 01/03/211841 Trans: 01/03/212016 NICOLA [id number] Interpreted by: TATIANA PATIÑO Electronically signed by: TATIANA PATIÑO 01/03/212016 Departure Impression Primary Impression: Right-sided chest wall pain Disposition: 01 HOME, SELF-CARE Condition: Stable Departure-Patient Inst. Decision time for Depature: 18:48 Referrals: HUGH LAY MD (PCP/Family) Primary Care Physician Patient Instructions: Rib Fracture (DC) Add. Discharge Instructions: follow up with Dr Lay in 1 week regarding your pain All discharge instructions reviewed with patient and/or family. Voiced understanding. Scripts Oxycodone HCl/Acetaminophen (Oxycodone-Acetaminophen 5-325) 1 Each Tablet 1 EACH PO Q4H PRN for PAIN-MODERATE MDD 6 for 5 Days, #10 TAB 0 Refills Prov: ROVENSTINEAMARJITMIKHAIL L DO 01/03/21 Ibuprofen (Ibuprofen) 800 Mg Tablet 800 MG PO Q8H PRN for PAIN, #30 TAB 0 Refills Prov: ROVENSTINEMIKHAIL L DO 01/03/21 ROVENSTINEAMARJITMIKHAIL L DO Jan 03, 2021 18:36
[2021-01-03] MEDS ORDERED: IBUP-1780 PO (18:46)
[2021-01-03] MEDS ORDERED: OXYC1TAB11 PO (18:47)
--- NOTE | 2021-01-03 18:54 | Diagnostic Imaging Report ---
INDICATION: Right-sided rib pain, rib fractures, COPD COMPARISON: 10/22/2020 CT chest FINDINGS: 3 views of the right ribs demonstrate a healed 9th rib fracture. There is no new fracture deformity. No osseous lesion is seen. The visualized right lung is clear. There is no pneumothorax or effusion. IMPRESSION: Healing right 9th rib fracture. No acute fracture deformity identified. Dictated by: Dictated on workstation # [id number]
== END 2021-01-03 18:50 | disposition home or self-care (01) ==
LOC: EDUNIT# 18:08 → ER FS 18:10
DX: R07.89 Other chest pain (principal); J44.9 Chronic obstructive pulmonary disease, unspecified; F17.210 Nicotine dependence, cigarettes, uncomplicated; Z79.52 Long term (current) use of systemic steroids
CPT/HCPCS: 71100